=== PATIENT | female | born 1960 | race Caucasian/White ===

== ENCOUNTER → 2024-01-09 09:09 | Outpatient (REF) | payer OTHER, SELFPAY | LOC: HWRCS 09:09 | PROVIDERS: ATTENDING PHYSICIAN Internal Medicine | DX: I34.1 Nonrheumatic mitral (valve) prolapse (principal) | CPT/HCPCS: 93306 ==

== ENCOUNTER → 2024-04-09 15:00 | Outpatient (REF) | payer MEDICARE, OTHER, SELFPAY | LOC: HWRAD 15:00 | PROVIDERS: ATTENDING PHYSICIAN Internal Medicine Rheumatology; FAMILY PHYSICIAN Internal Medicine; REFERRING PHYSICIAN Obstetrics & Gynecology | DX: Z12.31 Encounter for screening mammogram for malignant neoplasm of breast (principal); M81.0 Age-related osteoporosis without current pathological fracture | CPT/HCPCS: 77063; 77067; 77080 ==

== ENCOUNTER → 2024-12-28 14:51 | Outpatient (REF) | payer MEDICARE, OTHER, SELFPAY | LOC: HWRAD 14:51 | PROVIDERS: ATTENDING PHYSICIAN Internal Medicine | DX: M54.50 Low back pain, unspecified (principal) | CPT/HCPCS: 72110 ==

== ENCOUNTER → 2025-05-13 11:38 | Outpatient (REF) | payer MEDICARE, OTHER, SELFPAY | LOC: WDC 11:38 | PROVIDERS: ATTENDING PHYSICIAN Internal Medicine | DX: Z12.31 Encounter for screening mammogram for malignant neoplasm of breast (principal) | CPT/HCPCS: 77063; 77067 ==